=== PATIENT | female | born 1980 | race American Indian/Alaskan Native ===

== ENCOUNTER 2016-12-14 08:11 | Day surgery (SDC) | payer BC ==
[2016-12-14] MEDS ORDERED: NACL 0.9% 1000 ML 1,000 ML ONE (08:25)
[2016-12-14] MEDS ORDERED: NACL 0.9% 1000 ML 1,000 ML IV SCH (09:00)
--- NOTE | 2016-12-14 09:50 | Anesthesia Consultation ---
Anesthesia Consult and Med Hx Date of service: 12/14/16 - Airway Anesthetic Teeth Evaluation: Good ROM Head & Neck: Adequate Mental/Hyoid Distance: Adequate Mallampati Class: Class II Intubation Access Assessment: Probably Good - Pulmonary Exam CTA: Yes - Cardiac Exam Cardiac Exam: RRR - Pre-Operative Health Status ASA Pre-Surgery Classification: ASA3 Proposed Anesthetic Plan: MAC - Pre-Anesthesia Comment Pre-Anesthesia Comments: Healthy, except high BMI - Pulmonary Hx Smoking: No Hx Asthma: No - Cardiovascular System Hx Heart Attack/AMI: No - Central Nervous System Hx Seizures: No CVA: No - Endocrine Hx Renal Disease: No - Other Systems Hx Obesity: Yes - Additional Comments Anesthesia Medical History Comments: NAC
--- NOTE | 2016-12-14 09:51 | Anesthesia Day of Surgery ---
Anesthesia Day of Surgery - Day of Surgery Patient Examined: Yes Patient H&P Reviewed: Yes Patient is NPO: Yes
[2016-12-14] MEDS ORDERED: DIPRIVAN 10 MG/ML IV ONE ×2 (10:03→10:23)
--- NOTE | 2016-12-14 10:42 | Operative Report ---
Operative Report Operative Report: OPERATIVE REPORT - EGD DATE 12/14 SURGERY: Upper endoscopy. SURGEON: Lety [place] M.D. POOL COORDINATOR: n/a PRE OP DX: dyspepsia POST OP DX: hiatal hernia TYPE OF ANESTHESIA: MAC. ESTIMATED BLOOD LOSS: None. COMPLICATIONS: None. SPECIMENS REMOVED: None. FINDINGS: 1. Small hiatal hernia. 2. Otherwise, normal esophagus, stomach and first portion of duodenum. INDICATIONS:INDICATION FOR PROCEDURE: Patient is a 36-year-old female with a long history of morbid obesity. She is planned to have a weight loss procedure and is here for preoperative planning EGD, to evaluate for any pathology that may prohibit her surgery and or explain her symptoms. PROCEDURE DETAILS: After consent was reviewed, patient was taken back to the operating room where patient was placed in the left lateral decubitus position and a bite block was placed in the mouth. After a time-out was called, MAC anesthesia was initiated. I then passed the endoscope into her oropharynx, into her esophagus, visualized the entire esophagus, which was all within normal limits. I then visualized the stomach and the first portion of the duodenum and there were no abnormalities I could clearly visualize. I then retroflexed the scope in the stomach and visualized the hiatus and I could see a small hiatal hernia. I then desufflated the stomach and removed the endoscope. Patient tolerated procedure well and was transferred to recovery room in good and stable condition.
--- NOTE | 2016-12-14 10:48 | Discharge Summary ---
Providers - Providers Date of discharge: 12/14/16 Attending physician: STAR WALDROP Hospitalization Condition: Good Procedures: egd Disposition: DC- TO HOME OR SELFCARE Core Measure Documentation - Palliative Care Palliative Care/ Comfort Measures: Not Applicable - Core Measures Any of the following diagnoses?: none Exam - Physical Exam Narrative exam: unchanged from pre-op exam - Constitutional Vitals: Temp Pulse Resp BP Pulse Ox 98.2 F 73 13 104/61 95 12/14/16 10:14 12/14/16 10:30 12/14/16 10:30 12/14/16 10:30 12/14/16 10:30 Plan Activity: no restrictions Weight Bearing Status: Full Weight Bearing Diet: regular
[2016-12-14 10:49] VITALS: BP 110/72
--- NOTE | 2016-12-14 11:35 | Post Anesthesia Evaluation ---
- Post Anesthesia Evaluation Patient Participated: Yes Airway Patent: Yes Stable Respiratory Function: Yes Nausea/Vomiting: No Temp > 96.8F: Yes Pain Manageable: Yes Adequeate Hydration: Yes Anesthesia Complications: No
== END 2016-12-14 08:12 | disposition home or self-care (01) ==
LOC: GIO 08:11
PROVIDERS: ATTEND Surgery
DX: K44.9 Diaphragmatic hernia without obstruction or gangrene (principal); E66.01 Morbid (severe) obesity due to excess calories
CPT/HCPCS: 43235; J2704; J7030